=== PATIENT | female | born 1965 | race Caucasian/White ===

== ENCOUNTER 2017-12-20 10:46 | Outpatient (CLI) | payer OTHER, SELFPAY ==
[2017-12-20 13:16] LABS: ALT 22 U/L (12-78); AST 14 U/L (15-37); Albumin 3.4 g/dL (3.4-5.0); Alkaline Phosphatase 101 U/L (46-116); Anion Gap 7.6 mmol/L (3-11); BUN 14 mg/dL (7-18); Bilirubin, Total 0.5 mg/dL (0.2-1.0); CO2 28.4 mmol/L (21.0-32.0); CREATININE 0.86 mg/dL (0.55-1.02); Calcium 8.9 mg/dL (8.5-10.1); Chloride 105 mmol/L (98-107); Cholesterol 162 mg/dL (50-200); Glucose 125 mg/dL (70-100); HDL Cholesterol 72 mg/dL (40-60); LDL CHOLESTEROL 79 mg/dL (<100); Potassium 4.2 mmol/L (3.5-5.1); Sodium 141 mmol/L (136-145); Total Protein 6.3 g/dL (6.4-8.2); Triglyceride 58 mg/dL (30-150)
[2017-12-20 13:21] LABS: COMMENT (LAB VIEW ONLY) 94.21 mg/dL
[2017-12-20 15:26] LABS: Hemoglobin A1C 8.1 % (4.5-6.2)
[2017-12-21 09:50] LABS: Hepatitis C Ab w Rflx HCV PCR Negative (NEGAT)
== END 2017-12-20 11:06 ==
PROVIDERS: Internal Medicine Endocrinology, Diabetes & Metabolism; PCP Registered Nurse; Visit Provider Registered Nurse
DX: E10.9 Type 1 diabetes mellitus without complications (principal); Z11.59 Encounter for screening for other viral diseases; Z13.220 Encounter for screening for lipoid disorders; E10.65 Type 1 diabetes mellitus with hyperglycemia
CPT/HCPCS: 36415; 80053; 80061; 83721; 86803; 82043; 82570; 83036

== ENCOUNTER 2018-09-07 11:47 | Outpatient (CLI) | payer OTHER, SELFPAY ==
[2018-09-07 13:48] LABS: COMMENT (LAB VIEW ONLY) 177.12 mg/dL
[2018-09-07 14:13] LABS: ALT 27 U/L (12-78); AST 12 U/L (15-37); Albumin 3.5 g/dL (3.4-5.0); Alkaline Phosphatase 134 U/L (46-116); Anion Gap 11.2 mmol/L (3-11); BUN 16 mg/dL (7-18); Bilirubin, Total 0.5 mg/dL (0.2-1.0); CO2 25.8 mmol/L (21.0-32.0); Calcium 8.9 mg/dL (8.5-10.1); Calculated LDL 72 mg/dL; Chloride 103 mmol/L (98-107); Cholesterol 161 mg/dL (50-200); Glucose 173 mg/dL (70-100); HDL Cholesterol 74 mg/dL (40-60); Potassium 4.1 mmol/L (3.5-5.1); Sodium 140 mmol/L (136-145); Total Protein 6.7 g/dL (6.4-8.2); Triglyceride 75 mg/dL (30-150)
[2018-09-07 14:16] LABS: Hemoglobin A1C 7.7 % (4.5-6.2)
== END 2018-09-07 12:07 ==
PROVIDERS: PCP Family Medicine; Visit Provider Family Medicine
DX: E10.9 Type 1 diabetes mellitus without complications (principal)
CPT/HCPCS: 36415; 80053; 80061; 83721; 82043; 82570; 83036

== ENCOUNTER 2018-09-20 16:14 | Outpatient (REF) | payer OTHER, SELFPAY ==
--- NOTE | 2018-09-20 15:30 | PAPFT_PTH ---
PATIENT: Amy Villa LOC: [facility] U#:[id number] AGE/SX: 53/F ROOM: RE09/20/[address]: Esha Solis MD, DC : 1965 BED: DIS: 09/20/2018 SPEC #: [id number] RECD: 09/20/18 18:19 STATUS: SUMIT REQ #: [id number] ELIZABETH: 09/20/18 15:[address]: Esha Solis DEPT: [facility] Cytology RECD BY: Olimpia Bolton Tissues: 1 - CX/ENDOCX FOR PAP SMEARS Procedures: PAP THIN PREP/UVM Screening HPV DNA PROBE Comments: [id number]
== END 2018-09-20 16:34 ==
LOC: LBN 16:14
PROVIDERS: PCP Family Medicine; Visit Provider Family Medicine
DX: Z12.4 Encounter for screening for malignant neoplasm of cervix (principal); Z11.51 Encounter for screening for human papillomavirus (HPV)
CPT/HCPCS: 88142; 87624

== ENCOUNTER 2019-01-04 01:57 | Outpatient (CLI) | payer OTHER, SELFPAY ==
--- NOTE | 2019-01-04 11:29 | DI.MAMMO_ITS ---
EXAM: MAMMO SCREENING CLINICAL HISTORY: screening Z12.31 TECHNIQUE: Mammograms were interpreted according to the usual protocol including computer analysis w [employer] CAD system, tomosynthesis and C-view imaging. COMPARISON: April 2016 FINDINGS: The breasts are of moderate density with fairly symmetrical distribution of fibroglandular tissue. No dominant mass is identified in either breast. There is a group of microcalcifications, right breast , approximately the 6 o'clock position in the central portion of the breast visible on CC and MLO vie ws and not present on prior study of April 2016. These are not ideally visualized but may be acin ar in appearance. Additional magnification spot compression views are requested for further evaluatio n of these incompletely characterized microcalcifications. IMPRESSION: Additional mammographic views of the right breast requested as described above. Breast ultrasound may be indicated as well depending on the results of the additional mammographic views. Category 0, kami st density category B. BI-RADS Cat 0 - Assessment Incomplete: Need additional imaging evaluation Breast Density - Category B - Scattered areas of fibroglandular density Patient will receive a letter notifying them of these results.
[2019-01-04 11:45] LABS: Hemoglobin A1C 7.8 % (4.5-6.2)
[2019-01-04 12:32] LABS: TSH (W/Ref FT4) 5.55 uIU/mL (0.36-3.74)
[2019-01-04 12:49] LABS: FREE T4 0.71 ng/dL (0.76-1.46)
== END 2019-01-04 02:17 ==
PROVIDERS: PCP Family Medicine; Visit Provider Family Medicine
DX: Z12.31 Encounter for screening mammogram for malignant neoplasm of breast (principal); E10.9 Type 1 diabetes mellitus without complications; R79.89 Other specified abnormal findings of blood chemistry
CPT/HCPCS: 77063; 77067; 83036; 84439; 84443

== ENCOUNTER 2019-01-10 00:39 | Outpatient (CLI) | payer OTHER, SELFPAY ==
--- NOTE | 2019-01-10 14:33 | DI.MAMMO_ITS ---
EXAM: US BREAST RT LIMITED and spot magnification views of the right breast CLINICAL HISTORY: MICROCALCIFICATIONS RT BREAST, SPOT COMPRESSION REQUESTED TECHNIQUE: Ultrasound performed using standard protocol. Spot magnifications of the right breast w ere obtained. Additional images are interpreted according to the usual protocol including tomosynthe sis and 2D imaging. COMPARISON: Priors for comparison. FINDINGS: A small cluster of calcifications in the right breast appear unchanged. There are no definite suspic ious characteristics present at this time. No associated mass is seen. A right breast ultrasound was performed. The upper and lower outer quadrants of the right breast wer e evaluated sonographically. No suspicious cystic or solid masses are seen. IMPRESSION: 1. No suspicious evidence for malignancy at this time. 2. A 6 month follow-up right mammogram is requested for re-evaluation. BI-RADS Cat 3 - 6 month - Probably Benign Finding: Recommend follow-up mammography in 6 months Breast Density - Category B - Scattered areas of fibroglandular density The findings were discussed with the patient on the date of the examination.
== END 2019-01-10 00:59 ==
PROVIDERS: PCP Family Medicine; Visit Provider Family Medicine
DX: Z12.31 Encounter for screening mammogram for malignant neoplasm of breast (principal); R92.8 Other abnormal and inconclusive findings on diagnostic imaging of breast; R92.1 Mammographic calcification found on diagnostic imaging of breast
CPT/HCPCS: 76642; 77063; 77067

== ENCOUNTER 2019-02-01 10:19 | Outpatient (CLI) | payer OTHER, SELFPAY ==
[2019-02-01 10:56] LABS: TSH (W/Ref FT4) 3.06 uIU/mL (0.36-3.74)
== END 2019-02-01 10:39 ==
PROVIDERS: PCP Family Medicine; Visit Provider Family Medicine
DX: E03.9 Hypothyroidism, unspecified (principal)
CPT/HCPCS: 36415; 84443

== ENCOUNTER 2019-05-02 02:07 | Outpatient (CLI) | payer OTHER, SELFPAY ==
--- NOTE | 2019-05-02 09:45 | DI.US_ITS ---
EXAM: ABDOMEN ULTRASOUND CLINICAL HISTORY: RUQ TENDERNESS, NAUSEA, VOMITING, ABD PAIN, R10.9 TECHNIQUE: Ultrasound abdomen performed using standard protocol. COMPARISON: No exams were available for comparison FINDINGS: LIVER: Normal size and echogenicity. No focal liver lesions are seen.. GALLBLADDER: No evidence of cholelithiasis. No evidence of wall thickening. No pericholecystic fluid identified. KIDNEYS: Kidneys are symmetric in size. No evidence of renal calculi. No evidence of hydronephrosis. No renal mass or cyst identified. BILIARY SYSTEM: No intrahepatic or extrahepatic biliary ductal dilation. ALVAREZ'S SIGN: Negative. PANCREAS: Normal where visualized. SPLEEN: Not enlarged. ABDOMINAL AORTA AND IVC: Visualized portions normal caliber. ASCITES: None seen. IMPRESSION: Normal sonographic appearance of the upper abdomen. DATA REPOSITORY:
== END 2019-05-02 02:27 ==
PROVIDERS: PCP Family Medicine; Visit Provider Family Medicine
DX: R10.11 Right upper quadrant pain (principal); R11.2 Nausea with vomiting, unspecified
CPT/HCPCS: 76700

== ENCOUNTER 2019-09-21 01:47 | Outpatient (CLI) | payer OTHER, SELFPAY ==
[2019-09-21 13:07] LABS: Hemoglobin A1C 7.7 % (3.8-5.6)
[2019-09-21 13:20] LABS: TSH (W/Ref FT4) 2.28 uIU/mL (0.36-3.74)
== END 2019-09-21 02:07 ==
PROVIDERS: PCP Family Medicine; Visit Provider Family Medicine
DX: E03.9 Hypothyroidism, unspecified (principal); E11.9 Type 2 diabetes mellitus without complications
CPT/HCPCS: 36415; 83036; 84443

== ENCOUNTER 2019-12-29 03:03 | Outpatient (CLI) | payer OTHER, SELFPAY ==
--- NOTE | 2019-12-29 10:20 | DI.MAMMO_ITS ---
EXAM: MG MAMMO DIAGNOSTIC BI CLINICAL HISTORY: F/U ABNL MAMMO,R92.8 TECHNIQUE: Mammograms were interpreted according to the usual protocol including computer analysis w [employer] CAD system, tomosynthesis and C-view imaging. COMPARISON: FINDINGS: The breasts are of moderate density with fairly symmetrical distribution of fibroglandular tissue. N o dominant mass is identified in either breast. There are stable small areas of nodularity in the ri ght breast. There are multiple calcifications of the right breast, these appear unchanged or show ev idence of aggregation since the prior mammogram of December 2018, consistent with benign process. No new mass or suspicious clumped microcalcification is seen. No other change in appearance comparison with prior studies. IMPRESSION: No specific evidence of malignancy at this time. Probably benign calcifications of the right breast. Follow-up mammogram requested in 12 months. BI-RADS Category 2 - Benign Findings Breast Density - Category B - Scattered areas of fibroglandular density
== END 2019-12-29 03:23 ==
PROVIDERS: PCP Family Medicine; Visit Provider Family Medicine
DX: R92.8 Other abnormal and inconclusive findings on diagnostic imaging of breast (principal); R92.1 Mammographic calcification found on diagnostic imaging of breast
CPT/HCPCS: 77062; 77066; G0279

== ENCOUNTER 2020-02-08 05:07 | Outpatient (CLI) | payer OTHER, SELFPAY ==
[2020-02-08 10:11] LABS: Hemoglobin A1C 7.9 % (<5.7)
[2020-02-08 10:26] LABS: COMMENT (LAB VIEW ONLY) 90.85 mg/dL
[2020-02-08 10:35] LABS: ALT 25 U/L (14-59); AST 12 U/L (15-37); Albumin 3.4 g/dL (3.4-5.0); Alkaline Phosphatase 125 U/L (46-116); Anion Gap 9.4 mmol/L (3-11); BUN 17 mg/dL (7-18); Bilirubin, Total 0.6 mg/dL (0.2-1.0); CO2 25.6 mmol/L (21.0-32.0); CREATININE 0.94 mg/dL (0.55-1.02); Calcium 8.7 mg/dL (8.5-10.1); Calculated LDL 94 mg/dL (<100); Chloride 100 mmol/L (98-107); Cholesterol 182 mg/dL (<200); Glucose 355 mg/dL (74-106); HDL Cholesterol 73 mg/dL (40-60); Potassium 4.1 mmol/L (3.5-5.1); Sodium 135 mmol/L (136-145); Total Protein 6.7 g/dL (6.4-8.2); Triglyceride 79 mg/dL (<150)
== END 2020-02-08 05:27 ==
PROVIDERS: PCP Family Medicine; Visit Provider Family Medicine
DX: E11.9 Type 2 diabetes mellitus without complications (principal); K21.9 Gastro-esophageal reflux disease without esophagitis
CPT/HCPCS: 36415; 80053; 80061; 82043; 82570; 83036

== ENCOUNTER 2020-02-13 22:23 | Outpatient (REF) | payer OTHER, SELFPAY ==
[2020-02-13 21:39] LABS: Bilirubin Negative (Negative); Blood Negative (Negative); Clarity Sl Cloudy (Clear); Glucose 500 mg/dL (Negative); Ketones Negative (Negative); Leukocyte Esterase Negative (Negative); Nitrite Negative (Negative); Specific Gravity >= 1.030 (1.005-1.025); Urobilinogen 0.2 EU/dL (Up TO 0.2)
== END 2020-02-13 22:43 ==
LOC: LBN 22:23
PROVIDERS: PCP Family Medicine; Visit Provider Family Medicine
DX: R10.2 Pelvic and perineal pain (principal)
CPT/HCPCS: 81003

== ENCOUNTER 2020-03-05 08:56 | Outpatient (CLI) | payer OTHER, SELFPAY ==
[2020-03-06 19:28] LABS: COVID-19 RT-PCR UVMMC Result Negative (Negative)
== END 2020-03-05 09:16 ==
PROVIDERS: PCP Family Medicine; Visit Provider Family Medicine
DX: Z20.828 Contact with and (suspected) exposure to other viral communicable diseases (principal)
CPT/HCPCS: U0003

== ENCOUNTER 2020-03-15 04:19 | Outpatient (CLI) | payer OTHER, SELFPAY ==
--- NOTE | 2020-03-15 08:08 | DI.US_ITS ---
EXAM: US PELVIS TRANSVAGINAL CLINICAL HISTORY: suprapubic fullness,suprapubic abd pain,r10.2 TECHNIQUE: Ultrasound of the pelvis was performed both transabdominal and transvaginal. COMPARISON: US US ABDOMEN from 05/02/2019 . There are no prior pelvic ultrasounds. FINDINGS: UTERUS: Measures 7.9 cm length x 3.6 cm AP x 4.0 cm wide. There is a small 2 millimeter calcification in the deep anterior myometrium, just above the endometri um. Endometrial thickness measures 2-3 mm. There is no fluid in the endometrial canal. CERVIX: There are no obvious nabothian cysts. RIGHT OVARY: Measures 1.1 x 0.8 x 0.7 cm No significant cysts nor masses evident in the right ovary. LEFT OVARY: Measures 1.5 x 0.7 x 0.9 cm No significant cysts nor masses evident in the left ovary. CUL-DE-SAC: No free fluid evident. There images of both kidneys study appear unremarkable. IMPRESSION: 1. Small calcified anterior myometrial fibroid near the fundus 2. Nonthickened endometrium. No fluid in the endometrial canal. 3. No abnormal adnexal findings. No free fluid DATA REPOSITORY:
== END 2020-03-15 04:39 ==
PROVIDERS: PCP Family Medicine; Visit Provider Family Medicine
DX: D25.9 Leiomyoma of uterus, unspecified (principal); R10.2 Pelvic and perineal pain
CPT/HCPCS: 76830; 76856

== ENCOUNTER 2020-09-17 08:54 | Outpatient (CLI) | payer OTHER, SELFPAY ==
--- OUTSIDE RECORDS SUMMARY | 2020-09-17 08:59 | XMS_ITS ---
:1965 Author Care Team Providers Name Role Phone DR. HARRISON JAIMES Primary Care Provider [phone] DR. HARRISON JAIMES Referring Provider [phone] HARRISON JAIMES SUPERVISOR [employer]ESSING (DIRECT) Primary Care Provider [phone] Allergies Code Code System Name Reaction Severity Status Onset NKDA ? Medications Name Status Start Date Stop Date ? ? acyclovir 400 mg tablet Completed ? 04/20/19 19 Take 2 tablets twice a day by oral route as needed. aspirin 81 mg tablet,delayed release Active ? Not available Take 1 tablet every day by oral route. BD Ultra-Fine Sherlyn Pen Needle 32 gauge x /32 Active 1 Not available Use with Lantus pen (1 times) and Novolog Pen (3 - 4 times) famotidine 20 mg tablet Active ? Not avai lable Take 1 tablet every day by oral route. fluoxetine 40 mg capsule Active ? Not mita ilable Take 1 capsule every day by oral route. Humulin N NPH U-100 Insulin (isophane susp) 100 unit/mL subc utaneous Completed ? 12/09/2016 Inject 12 units every day by subcutaneous route as directed. Humulin R Regular U-100 Insulin 100 unit/mL injection solution C ompleted ? 12/09/2016 Take 3 times a day by injection route as directed. Ketone Urine Test strips Active ? Not mita ilable Test urine iif BG 350, or SICk and [place] Lantus Solostar U-100 Insulin 100 unit/mL (3 mL) subcutaneous pe n Active ? Not available INJECT 20 UNITS SUBCUTANEOUSLY ONCE DAILY AT BEDTIME AT 9PM melatonin 3 mg tablet Active ? Not availa ble Take 3 mg every day by oral route at bedtime. metformin 1,000 mg tablet Completed ? 2018 Take 1 tablet twice a day by oral route. Multi Vitamin Completed ? 09/21/2017 Novolog Flexpen U-100 Insulin aspart 100 unit/mL (3 mL) subcutan eous Active ? Not available INJECT AT MEALS USING SLIDING SCALE.(GR AMS OF CARBS/10)+(BLOOD GLUCOSE-140)/25 AT BEDTIME OR WHEN NOT EATING(BLOOD GLUCOSE-190)/25. OneTouch UltraSoft Lancets Active ? Not a vailable Test 4 or 5 times daily or as directed. Dx E10.65 Medically nec essary. OneTouch Verio IQ Meter kit Completed ? 11/30 Test 4 to 5 times daily or as directed. Dx E11.65 Medically nec essary. OneTouch Verio test strips Completed ? 12/22 Test 4-5 times daily or as directed. Dx E11.65 Medically necess cem. ReliOn All-In-One Meter Active ? Not avai lable ReliOn Prime Test Strips Active ? Not mita ilable simvastatin 40 mg tablet Active ? Not mita ilable Take 1 tablet every day by oral route. Problems Name Status Onset Date Source ? Type 1 Diabetes Mellitus Active 09/11/2016 ? Shoulder Pain Active 09/11/2016 ? 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 ? Colonoscopy Information not avai lable Notes: 1991, 2006, rectal bleeding ? Colposcopy Information not avai lable Results Lab Results Date Name Specimen Result Interpretation Description Value Range Status Address ? 04/20/2018 Glucose, Blood ? Blood 286 ? ? [facility] - Fingerstick, capillary Glucose: mg/dl Specialty: Blood [address] [facility] 12/22/2017 Glucose, Blood ? Blood 309 ? ? Rhc - Fingerstick, capillary Glucose: mg/dl Specialty: Blood [address] [place] [address] 12/20/2017 HbA1C ? No observation ? ? ? [facility] (Hemoglobin recorded. Ve ont a1C), [facility] 09/21[facility]2017 Glucose, Blood ? Blood 178 ? ? Rhc - Fingerstick, capillary Glucose: mg/dl Specialty: Blood 103 [facility] 09/18/2017 HbA1C High Hba1C 7.9 % 4. Final [place] (Hemoglobin 5- Hospkolby au a1C), Blood 6. (Lab) : 90 2 [facility] [place] ? ? High Mean Glucose 180 54 Final [place] mg/dL -1 Hospital 15 (Lab): [address], [facility] 06/09/2017 Glucose, Blood ? Blood 316 ? ? Rhc - Fingerstick, capillary Glucose: mg/dl Specialty: Blood 103 [facility] 06/01/2017 HbA1C High Hba1C 7.2 % 4. Final [place] (Hemoglobin 5- Hospi angely a1C), Blood 6. (Lab) : [address], [place] ? ? High Mean Glucose 160 54 Final [place] mg/dL -1 Hospital 15 (Lab): 90 [address], [facility] 03/10/2017 Glucose, Blood ? Blood 377 ? ? Rhc - Fingerstick, capillary Glucose: mg/dl Specialty: Blood 103 [facility] 03/05/2017 HbA1C High Hemoglobin 8.1 % 4. Final * DO Not Use* (Hemoglobin a1C 5- Ch La b: 90 a1C), Blood 6. [address], % [place] ? ? High Meangluc 186 54 Final *DO Not Use* mg/dL -1 Ch Lab: [address], /d [place] L 11/02/2016 HbA1C High Hemoglobin 8.4 % 4. Final * DO Not Use* (Hemoglobin a1C 5- Ch La b: 90 a1C), Blood 6. [address], % [place] ? ? High Meangluc 194 54 Final *DO Not Use* mg/dL -1 Ch Lab: [address], /d [place] L 11/02/2016 BMP, Serum or High Glucose 235 74 Angelita l *DO Not Use* Plasma mg/dL -1 Ch Lab: [address], /d [place] L ? ? ? Urea Nitrogen 15 7- Final *D O Not Use* mg/dL 18 Ch Lab: [address], L [place] ? ? ? Creatinine 0.8 0. Final *DO N ot Use* mg/dL 55 Ch Lab: 90 -[address], 2 [place] mg /d L ? ? ? Sodium 139.7 13 Final *DO Not U se* mmol/ 6- Ch Lab: 90 [address], mm [place] ol /L ? ? ? Potassium 4.4 3. Final *DO No t Use* mmol/ 5- Ch Lab: [address], mm [place] ol /L ? ? ? Chloride 104 98 Final *DO Not Use* mmol/ -1 Ch Lab: [address], ol [place] /l ? ? ? Carbon 29 21 Final *DO Not U se* Dioxide mmol/ -3 Ch Lab: 9 [address], ol [place] /l ? ? ? Calcium 8.7 8. Final *DO Not Use* mg/dL 5- Ch Lab: [address], mg [place] /d L ? ? ? Anion Gap 12 ? Final *DO No t Use* Ch Lab: 90 [facility] ? ? High BUN/crea 20.1 12 Final *DO Not Use* -2 Ch Lab: 90 0 [facility] ? ? ? Glomerular >60 ? Final *DO N ot Use* Filtration mL/mi Ch Lab : 90 Rate n/1.[address] [facility] 11/02/2016 Microalbumin/c ? Urine 107.0 ? Final *DO Not Use* reatinine, Creatinine, mg/dL C h Lab: 90 Ratio Panel, Random Swif twater Urine [facility] ? ? ? Urine 5.6 0- Final *DO Not Us e* Microalbumin mg/L 20 Ch L ab: 90 mg [place] /L [facility] ? ? ? Mircoalbumin/ 5.2 ? Final *D O Not Use* creatinine mg/g Ch Lab : 90 [facility] 11/02/2016 C-peptide, ? C-peptide, 0.2 ? Angelita l *DO Not Use* Serum Serum Ch Lab: 90 [facility] 11/02/2016 Manuel-65 Ab, ? Gad65 Ab 0.33 ? Final *DO Not Use* Serum Assay Ch Lab: 90 [facility] ? Glucose, Blood ? Blood 341 ? ? Rhc - Fingerstick, capillary Glucose: mg/dl Specialty: Blood 103 [facility] ? Glucose, Blood ? Blood 179 ? ? Rhc - Fingerstick, capillary Glucose: mg/dl Specialty: Blood 103 [facility] Past Encounters None recorded. Social History Tobacco Smoking Status Former Smoker Notes: 019 Vaccine List Vaccine Type pneumococcal polysaccharide PPV23 03/01/2001 Td (adult) 06/01/2011 Tdap 06/01/2011 Plan of Care Reminders Provider Appointments None ? ? recorded. Lab None ? ? recorded. Referral None ? ? recorded. Procedures None ? ? recorded. Surgeries None ? ? recorded. Imaging None ? ? recorded. Vitals 04/20/2018 01:00PM ENDOCRINOLOGY FOLLOW UP 30 Height Weight BMI Blood Pressure 175.26 cm 98.88 kg 32.2 kg/m2 100/62 mm[Hg] 12/22/2017 01:00PM ENDOCRINOLOGY FOLLOW UP 30 Height Weight BMI Blood Pressure 175.26 cm 98.88 kg 32.2 kg/m2 100/60 mm[Hg] 09/21/2017 03:00PM ENDOCRINOLOGY FOLLOW UP 30 Height Weight BMI Blood Pressure 175.26 cm 92.53 kg 30.1 kg/m2 102/54 mm[Hg] 06/09/2017 01:00PM ENDOCRINOLOGY FOLLOW UP 30 Height Weight BMI Blood Pressure 175.26 cm 94.35 kg 30.7 kg/m2 100/60 mm[Hg] 03/10/2017 01:00PM ENDOCRINOLOGY FOLLOW UP 30 Height Weight BMI Blood Pressure 175.26 cm 93.89 kg 30.6 kg/m2 110/70 mm[Hg] 12/09/2016 02:30PM ENDOCRINOLOGY FOLLOW UP 30 Height Weight BMI Blood Pressure 175.26 cm 94.35 kg 30.7 kg/m2 130/80 mm[Hg] 10/20/2016 01:30PM ENDOCRINOLOGY NEW PATIENT 60 Height Weight BMI Blood Pressure 175.26 cm 97.07 kg 31.6 kg/m2 102/70 mm[Hg]
[2020-09-17 10:20] LABS: ALT 31 U/L (14-59); AST 27 U/L (15-37); Albumin 3.4 g/dL (3.4-5.0); Alkaline Phosphatase 127 U/L (46-116); Anion Gap 8.4 mmol/L (3-11); BUN 13 mg/dL (7-18); Bilirubin, Total 0.5 mg/dL (0.2-1.0); CO2 27.6 mmol/L (21.0-32.0); CREATININE 0.9 mg/dL (0.55-1.02); Calcium 8.8 mg/dL (8.5-10.1); Chloride 107 mmol/L (98-107); Glucose 187 mg/dL (74-106); Potassium 4.1 mmol/L (3.5-5.1); Sodium 143 mmol/L (136-145); Total Protein 6.5 g/dL (6.4-8.2)
== END 2020-09-17 08:55 | disposition home or self-care (01) ==
LOC: LBO 08:56
PROVIDERS: PCP Family Medicine; Visit Provider Family Medicine
DX: E10.9 Type 1 diabetes mellitus without complications (principal)
CPT/HCPCS: 36415; 80053

== ENCOUNTER 2021-01-09 17:56 | Outpatient (REF) | payer OTHER, SELFPAY ==
[2021-01-10 16:03] LABS: COVID-19 RT-PCR UVMMC Result Negative (Negative)
== END 2021-01-09 17:57 | disposition home or self-care (01) ==
LOC: NCHCN 17:56
PROVIDERS: PCP Family Medicine; Visit Provider Physician Assistant Medical
DX: Z20.822 Contact with and (suspected) exposure to COVID-19 (principal); J06.9 Acute upper respiratory infection, unspecified
CPT/HCPCS: U0003

== ENCOUNTER 2021-02-06 14:05 | Outpatient (REF) | payer OTHER, SELFPAY ==
[2021-02-08 18:26] LABS: COVID-19 RT-PCR UVMMC Result Negative (Negative)
== END 2021-02-06 14:06 | disposition home or self-care (01) ==
LOC: LBN 14:05
PROVIDERS: PCP Family Medicine; Visit Provider Family Medicine
DX: E10.9 Type 1 diabetes mellitus without complications (principal); F98.8 Other specified behavioral and emotional disorders with onset usually occurring in childhood and adolescence; Z20.822 Contact with and (suspected) exposure to COVID-19
CPT/HCPCS: U0003

== ENCOUNTER 2021-05-12 16:02 | Outpatient (REF) | payer OTHER, SELFPAY ==
[2021-05-12 20:23] LABS: COMMENT (LAB VIEW ONLY) 200.82 mg/dL; Microalb ug/mg Crea 3.8 ug/mg Cr
== END 2021-05-12 16:03 | disposition home or self-care (01) ==
LOC: LBN 16:02
PROVIDERS: PCP Family Medicine; Visit Provider Family Medicine
DX: E10.9 Type 1 diabetes mellitus without complications (principal); F98.8 Other specified behavioral and emotional disorders with onset usually occurring in childhood and adolescence
CPT/HCPCS: 82043; 82570

== ENCOUNTER 2021-05-26 01:09 | Outpatient (CLI) | payer OTHER, SELFPAY ==
--- NOTE | 2021-05-26 08:15 | DI.MAMMO_ITS ---
Exam(s) MAMMO SCREENING EXAM: MAMMO SCREENING CLINICAL HISTORY: screening,z12.39 TECHNIQUE: Mammograms were interpreted according to the usual protocol including computer analysis w [employer] CAD system, tomosynthesis and C-view imaging. COMPARISON: 2013 through 2019 FINDINGS: The breasts are composed of scattered fibroglandular densities, Breast Density category B. No suspicious masses or suspicious microcalcifications are seen. Benign calcifications are again not ed in the right breast. No skin thickening or abnormal axillary lymph nodes are seen. There has been no significant change from prior exams. IMPRESSION: BI-RADS Cat 2 - Benign Findings Yearly screening mammography is recommended. Breast Density - Category B, scattered fibroglandular densities. A negative radiographic report should not delay biopsy if a dominant or clinically suspicious mass is present. Up to ten percent of cancers are not identified on mammography. A negative report may reinforce clinical impression. Adenosis and dense breasts may obscure an underlying neoplasm. False positive reports average 6 to 10%. Patient will receive a letter notifying them of these results.
== END 2021-05-26 01:29 ==
PROVIDERS: PCP Family Medicine; Visit Provider Family Medicine
DX: Z12.31 Encounter for screening mammogram for malignant neoplasm of breast (principal)
CPT/HCPCS: 77063; 77067

== ENCOUNTER 2021-10-01 09:13 | Outpatient (CLI) | payer MEDICAID, SELFPAY ==
[2021-10-01 17:01] LABS: ALT 30 U/L (14-59); AST 18 U/L (15-37); Albumin 3.5 g/dL (3.4-5.0); Alkaline Phosphatase 109 U/L (46-116); Anion Gap 6.3 mmol/L (3-11); BUN 20 mg/dL (7-18); Bilirubin, Total 0.6 mg/dL (0.2-1.0); CO2 27.7 mmol/L (21.0-32.0); CREATININE 0.8 mg/dL (0.55-1.02); Calcium 8.8 mg/dL (8.5-10.1); Chloride 101 mmol/L (98-107); Glucose 223 mg/dL (74-106); Potassium 3.6 mmol/L (3.5-5.1); Sodium 135 mmol/L (136-145); Total Protein 6.9 g/dL (6.4-8.2)
== END 2021-10-01 09:14 | disposition home or self-care (01) ==
PROVIDERS: PCP Family Medicine; Visit Provider Family Medicine
DX: E10.9 Type 1 diabetes mellitus without complications (principal)
CPT/HCPCS: 36415; 80053

== ENCOUNTER 2022-02-12 15:56 | Outpatient (REF) | payer MEDICAID, SELFPAY ==
--- NOTE | 2022-02-12 13:45 | PAPFT_PTH ---
PATIENT: Amy Villa LOC: [facility] U#:[id number] AGE/SX: 57/F ROOM: RE02/12/[address]: Esha Solis MD, DC : 1965 BED: DIS: 02/12/2022 SPEC #: [id number] RECD: 02/13/22 12:51 STATUS: SUMIT REQ #: [id number] ELIZABETH: 02/12/22 13:[address]: Esha Solis DEPT: [facility] Cytology RECD BY: Olimpia Bolton Tissues: 1 - CX/ENDOCX FOR PAP SMEARS Procedures: PAP THIN PREP/UVM Screening HPV DNA PROBE Comments: [id number] (CHLAMYDIA/GC)
[2022-02-16 13:38] LABS: Chlamydia Result Negative (Negative); GC Result Negative (Negative)
== END 2022-02-12 15:57 | disposition home or self-care (01) ==
LOC: LBN 15:56
PROVIDERS: PCP Family Medicine; Visit Provider Family Medicine
DX: Z11.3 Encounter for screening for infections with a predominantly sexual mode of transmission (principal); Z12.4 Encounter for screening for malignant neoplasm of cervix; Z11.51 Encounter for screening for human papillomavirus (HPV)
CPT/HCPCS: 87491; 87591; 88142; 87624

== ENCOUNTER 2022-04-06 08:51 | Outpatient (CLI) | payer MEDICAID, SELFPAY ==
[2022-04-06 12:34] LABS: HCT 41.6 % (36.0-46.0); HGB 13.4 g/dL (11.2-15.7); MCH 30.8 pg (27.0-33.0); MCHC 32.2 % (32.0-36.0); MCV 96 fL (80-95); MPV 10.7 fL (8.0-11.0); Platelet Count 222 10^3/uL (130-400); RBC 4.35 10^6/uL (3.93-5.22); RDW 12.5 % (11.7-14.6); RDW-SD 44.6 fL; WBC 4.85 10^3/uL (4.4-10.8)
[2022-04-06 12:43] LABS: COMMENT (LAB VIEW ONLY) 155.88 mg/dL; Microalb ug/mg Crea 5.4 ug/mg Cr
[2022-04-06 12:55] LABS: ALT 58 U/L (14-59); AST 45 U/L (15-37); Albumin 3.4 g/dL (3.4-5.0); Alkaline Phosphatase 146 U/L (46-116); Anion Gap 9.4 mmol/L (3-11); BUN 15 mg/dL (7-18); Bilirubin, Total 0.4 mg/dL (0.2-1.0); CO2 25.6 mmol/L (21.0-32.0); CREATININE 0.9 mg/dL (0.55-1.02); Calculated LDL 68 mg/dL (<100); Chloride 107 mmol/L (98-107); Cholesterol 154 mg/dL (<200); Estimated GFR 74.57 (mL/min/1.73m2); Glucose 181 mg/dL (74-106); HDL Cholesterol 70 mg/dL (40-60); Sodium 142 mmol/L (136-145); TSH (W/Ref FT4) 3.99 uIU/mL (0.36-3.74); Total Protein 6.7 g/dL (6.4-8.2); Triglyceride 81 mg/dL (<150)
[2022-04-06 12:57] LABS: Hemoglobin A1C 7.3 % (<5.7)
[2022-04-06 13:12] LABS: FREE T4 0.74 ng/dL (0.76-1.46)
== END 2022-04-06 08:52 | disposition home or self-care (01) ==
LOC: LOS 08:51
PROVIDERS: PCP Family Medicine; Referring Provider Family Medicine; Visit Provider Family Medicine
DX: E11.9 Type 2 diabetes mellitus without complications (principal); R10.9 Unspecified abdominal pain; E10.9 Type 1 diabetes mellitus without complications; E03.9 Hypothyroidism, unspecified
CPT/HCPCS: 36415; 80053; 80061; 85027; 82043; 82570; 83036; 84439; 84443

== ENCOUNTER 2022-04-07 09:20 | Outpatient (CLI) | payer MEDICAID, SELFPAY ==
--- NOTE | 2022-04-07 08:30 | DI.RAD_ITS ---
Exam(s) XR RIBS LT W PA LAT CHEST EXAM: XR RIBS LT W PA LAT CHEST CLINICAL HISTORY: l rib pain, pleurodynia,r07.81. TECHNIQUE: 2D digital imaging was performed. COMPARISON: No exams were available for comparison FINDINGS: Total 6 views: Left rib cage-four views: There are no obvious left rib fractures identified. No rib lesions. Chest-two views: Heart size normal. Mediastinum not widened. Lungs are clear. No infiltrates nor p leural effusions. No pneumothorax IMPRESSION: No acute pulmonary findings. No pneumothorax. No obvious left rib fractures. DATA REPOSITORY: RADIATION DOSE DELIVERED:
== END 2022-04-07 09:40 ==
LOC: DI 09:20
PROVIDERS: PCP Family Medicine; Visit Provider Family Medicine
DX: R07.81 Pleurodynia (principal)
CPT/HCPCS: 71046; 71100

== ENCOUNTER 2022-04-21 01:09 | Outpatient (CLI) | payer MEDICAID, SELFPAY ==
--- NOTE | 2022-04-21 06:45 | DI.US_ITS ---
Exam(s) US ABDOMEN EXAM: US ABDOMEN CLINICAL HISTORY: LUQ ABD PAIN, R10.9 TECHNIQUE: Ultrasound abdomen performed using standard protocol. COMPARISON: US US ABDOMEN from 05/02/2019 FINDINGS: ABDOMINAL AORTA AND IVC: Visualized portions normal caliber. PANCREAS: Normal where visualized. LIVER: Normal. Hepatopedal flow in the Portal Vein. The liver measures 17.4 cm long. GALLBLADDER:No evidence of cholelithiasis. No evidence of wall thickening. No pericholecystic fluid i dentified. BILIARY SYSTEM: Common bile duct measures < 7 mm. No intrahepatic biliary ductal dilation. ALVAREZ'S SIGN: Negative. KIDNEYS: Kidneys are symmetric in size. No evidence of renal calculi. No evidence of hydronephrosis. No renal mass or cyst identified. SPLEEN: Not enlarged. ASCITES: None seen. IMPRESSION: Normal sonographic appearance of the upper abdomen. DATA REPOSITORY:
== END 2022-04-21 01:29 ==
LOC: DI 01:09
PROVIDERS: PCP Family Medicine; Visit Provider Family Medicine
DX: R10.9 Unspecified abdominal pain (principal)
CPT/HCPCS: 76700

== ENCOUNTER 2022-07-16 03:13 | Outpatient (CLI) | payer MEDICAID, SELFPAY ==
[2022-07-16 14:58] LABS: Hemoglobin A1C 7.3 % (<5.7)
[2022-07-16 15:14] LABS: TSH (W/Ref FT4) 2.42 uIU/mL (0.36-3.74)
== END 2022-07-16 03:14 | disposition home or self-care (01) ==
PROVIDERS: PCP Family Medicine; Visit Provider Family Medicine
DX: E10.9 Type 1 diabetes mellitus without complications (principal); E03.9 Hypothyroidism, unspecified
CPT/HCPCS: 36415; 83036; 84443

== ENCOUNTER 2023-03-05 02:53 | Outpatient (CLI) | payer MEDICAID, SELFPAY ==
[2023-03-05 15:05] LABS: HCT 40.6 % (36.0-46.0); HGB 13.7 g/dL (11.2-15.7); MCH 31.9 pg (27.0-33.0); MCHC 33.7 % (32.0-36.0); MCV 95 fL (80-95); MPV 10.9 fL (8.0-11.0); Platelet Count 224 10^3/uL (130-400); RBC 4.29 10^6/uL (3.93-5.22); RDW 12.9 % (11.7-14.6); RDW-SD 44.3 fL; WBC 6.56 10^3/uL (4.4-10.8)
[2023-03-05 15:36] LABS: Hemoglobin A1C 7.7 % (<5.7)
[2023-03-05 16:19] LABS: Iron 113 ug/dL (50-170)
[2023-03-05 16:32] LABS: ALT 50 U/L (14-59); AST 50 U/L (15-37); Albumin 3.5 g/dL (3.4-5.0); Alkaline Phosphatase 126 U/L (46-116); Anion Gap 6.4 mmol/L (3-11); BUN 18 mg/dL (7-18); Bilirubin, Total 0.6 mg/dL (0.2-1.0); CO2 26.6 mmol/L (21.0-32.0); CREATININE 0.9 mg/dL (0.55-1.02); Calcium 8.8 mg/dL (8.5-10.1); Calculated LDL 59 mg/dL (<100); Chloride 104 mmol/L (98-107); Cholesterol 164 mg/dL (<200); Ferritin 100 ng/mL (8-252); Glucose 127 mg/dL (74-106); HDL Cholesterol 80 mg/dL (40-60); Sodium 137 mmol/L (136-145); TSH (W/Ref FT4) 3.54 uIU/mL (0.36-3.74); Total Protein 6.9 g/dL (6.4-8.2); Triglyceride 129 mg/dL (<150)
== END 2023-03-05 02:54 | disposition home or self-care (01) ==
LOC: LBO 02:53
PROVIDERS: PCP Family Medicine; Visit Provider Family Medicine
DX: I10 Essential (primary) hypertension (principal); R53.83 Other fatigue; E11.9 Type 2 diabetes mellitus without complications; E03.9 Hypothyroidism, unspecified
CPT/HCPCS: 36415; 80053; 80061; 85027; 82728; 83036; 83540; 84443

== ENCOUNTER 2023-03-09 15:45 | Outpatient (REF) | payer MEDICAID, SELFPAY ==
[2023-03-09 21:46] LABS: COMMENT (LAB VIEW ONLY) 91.34 mg/dL; Microalb ug/mg Crea 4.1 ug/mg Cr
== END 2023-03-09 15:46 | disposition home or self-care (01) ==
LOC: LBN 15:45
PROVIDERS: PCP Family Medicine; Visit Provider Family Medicine
DX: E11.9 Type 2 diabetes mellitus without complications (principal)
CPT/HCPCS: 82043; 82570

== ENCOUNTER 2023-05-02 17:11 | Emergency (ER) | payer MEDICAID, SELFPAY ==
[2023-05-02 17:15] VITALS: BP 148/67; PULSE 84; RESP 18; TEMP 36.6; O2SAT 98
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
== END 2023-05-02 18:00 | disposition home or self-care (01) ==
PROVIDERS: Emergency Provider Nurse Practitioner Acute Care; PCP Family Medicine
DX: R22.33 Localized swelling, mass and lump, upper limb, bilateral (principal); M79.89 Other specified soft tissue disorders; E10.9 Type 1 diabetes mellitus without complications
CPT/HCPCS: 99281; 99282

== ENCOUNTER → 2023-06-23 02:19 | Outpatient (CLI) | payer MEDICAID, SELFPAY ==
--- NOTE | 2023-06-23 07:45 | DI.MAMMO_ITS ---
Exam(s) MAMMO SCREENING EXAM: MAMMO SCREENING CLINICAL HISTORY: screening,z12.39. TECHNIQUE: Bilateral full field digital CC and MLO mammographic images were obtained with 3D tomosyn thesis and utilizing computer aided detection (CAD). COMPARISON: Prior mammograms were reviewed. FINDINGS: There has been no significant change in the appearance and distribution of the fibroglandular tissue. A small new group of microcalcifications noted in the central left breast on the CC image, approximat rob 4 cm in from the nipple. This presently has benign appearance. Other benign-appearing micro and macro calcifications in the breasts appear unchanged. There are no new spiculated masses There is no significant architectural distortion nor skin thickening-retraction. IMPRESSION: Benign findings. No radiographic evidence of malignancy. BI-RADS Category 2 - Benign Findings Breast Density - Category B - Scattered areas of fibroglandular density Breast density Category C or D implies that the patient has dense breast tissue. Dense breast tissue can make it harder to find cancer on a mammogram. Dense breast tissue is also associated with an incr eased risk of breast cancer. This information about the result of the mammogram report was provided to the patient to raise their awareness. Use this report when you speak with the patient about their risks for breast cancer, which includes their family history. At that time, you may recommend additional screening tests (Ultrasoun d or MRI) as these tests may add significant information. A negative radiographic report should not delay biopsy if a dominant or clinically suspicious mass is present. Up to ten percent of cancers are not identified on mammography. A negative report may reinforce clinical impression. Adenosis and dense breasts may obscure an underlying neoplasm. False positive reports average 6 to 10%. Patient will receive a letter notifying them of these results.
== END ==
PROVIDERS: PCP Family Medicine; Visit Provider Family Medicine
DX: Z12.31 Encounter for screening mammogram for malignant neoplasm of breast (principal)
CPT/HCPCS: 77063; 77067

== ENCOUNTER → 2023-06-24 02:59 | Outpatient (CLI) | payer MEDICAID, SELFPAY ==
--- NOTE | 2023-06-24 07:30 | DI.DEXA_ITS ---
Exam(s) XR DEXA BONE DENSITY W/WO CALVIN EXAM: XR DEXA BONE DENSITY W/WO CALVIN CLINICAL HISTORY: SCREENING FOR OSTEOPOROSIS IN POSTMENOPAUSAL WOMAN,Z78.0 TECHNIQUE: COMPARISON: No exams were available for comparison FINDINGS: Lateral Spine Image: There is a question of mild compression of the L2 vertebral body on the lateral scanogram. Left hip: Total T-Score: -1.6 Total Z-Score: -0.7 T- and Z-scores: Findings are consistent with osteopenia. Lumbar Spine: Total T-Score: -2.4 Total Z-Score: -1.1 T- and Z-scores: Overall, findings are consistent with osteopenia. There is osteoporosis in the L3 a nd L4 vertebral bodies with T-scores of -2.5 and -2.7, respectively. IMPRESSION: Osteoporosis in the L3 and L4 vertebral bodies.
== END ==
PROVIDERS: PCP Family Medicine; Visit Provider Family Medicine
DX: Z78.0 Asymptomatic menopausal state (principal); M81.0 Age-related osteoporosis without current pathological fracture; Z13.820 Encounter for screening for osteoporosis
CPT/HCPCS: 77080

== ENCOUNTER 2023-11-01 18:24 | Outpatient (REF) | payer MEDICAID, SELFPAY ==
[2023-11-03 11:42] LABS: Chlamydia Result Negative (Negative); GC Result Negative (Negative)
== END 2023-11-01 18:25 | disposition home or self-care (01) ==
LOC: LBN 18:24
PROVIDERS: PCP Family Medicine; Visit Provider Nurse Practitioner Family
DX: B37.31 Acute candidiasis of vulva and vagina (principal); Z11.3 Encounter for screening for infections with a predominantly sexual mode of transmission
CPT/HCPCS: 87491; 87591; 87480; 87510; 87660

== ENCOUNTER 2024-03-23 04:07 | Outpatient (CLI) | payer MEDICAID, SELFPAY ==
[2024-03-23 11:42] LABS: Hemoglobin A1C 8.3 % (<5.7)
[2024-03-23 11:47] LABS: ALT 66 U/L (14-59); AST 63 U/L (15-37); Albumin 3.2 g/dL (3.4-5.0); Alkaline Phosphatase 172 U/L (46-116); Anion Gap 6.6 mmol/L (3-11); BUN 20 mg/dL (7-18); Bilirubin, Total 0.37 mg/dL (0.2-1.0); CO2 27.4 mmol/L (21.0-32.0); Calcium 8.8 mg/dL (8.5-10.1); Calculated LDL 114 mg/dL (<100); Chloride 109 mmol/L (98-107); Cholesterol 211 mg/dL (<200); Glucose 152 mg/dL (74-106); HDL Cholesterol 76 mg/dL (40-60); Potassium 4.2 mmol/L (3.5-5.1); Sodium 143 mmol/L (136-145); TSH (W/Ref FT4) 10.67 uIU/mL (0.36-3.74); Triglyceride 108 mg/dL (<150)
[2024-03-23 12:03] LABS: FREE T4 0.55 ng/dL (0.76-1.46)
== END 2024-03-23 04:08 | disposition home or self-care (01) ==
PROVIDERS: PCP Family Medicine; Visit Provider Family Medicine
DX: E03.9 Hypothyroidism, unspecified (principal); I10 Essential (primary) hypertension; E11.9 Type 2 diabetes mellitus without complications; R79.89 Other specified abnormal findings of blood chemistry
CPT/HCPCS: 36415; 80053; 80061; 83036; 84439; 84443

== ENCOUNTER 2024-04-03 15:46 | Outpatient (REF) | payer MEDICAID, SELFPAY ==
[2024-04-03 16:22] LABS: *AMPHETAMINES SCREEN URINE Positive (Negative); *BARBITURATES SCREEN URINE Negative (Negative); *BENZODIAZEPINES SCREEN URINE Negative (Negative); Cannabinoids THC Negative (Negative); Cocaine Screen,Urine Negative (Negative); METHADONE URINE SCREEN Negative (Negative); OPIATES URINE SCREEN Negative (Negative)
[2024-04-03 16:24] LABS: Tricyclic Antidepressants Negative (Negative)
[2024-04-03 16:32] LABS: COMMENT (LAB VIEW ONLY) 26.79 mg/dL; Microalb ug/mg Crea 9.7 ug/mg Cr
== END 2024-04-03 15:47 | disposition home or self-care (01) ==
LOC: LBN 15:46
PROVIDERS: PCP Family Medicine; Visit Provider Family Medicine
DX: E66.9 Obesity, unspecified (principal); Z79.891 Long term (current) use of opiate analgesic; F98.8 Other specified behavioral and emotional disorders with onset usually occurring in childhood and adolescence
CPT/HCPCS: 80307; 82043; 82570

== ENCOUNTER 2024-04-27 03:02 | Outpatient (CLI) | payer MEDICAID, SELFPAY ==
[2024-04-27 11:51] LABS: ALT 398 U/L (14-59); AST 312 U/L (15-37); Albumin 3.1 g/dL (3.4-5.0); Alkaline Phosphatase 305 U/L (46-116); Anion Gap 5.2 mmol/L (3-11); BUN 18 mg/dL (7-18); Bilirubin, Total 0.64 mg/dL (0.2-1.0); CO2 27.8 mmol/L (21.0-32.0); CREATININE 0.9 mg/dL (0.55-1.02); Chloride 107 mmol/L (98-107); Estimated GFR 73.64 (mL/min/1.73m2); Glucose 167 mg/dL (74-106); Potassium 4.5 mmol/L (3.5-5.1); Sodium 140 mmol/L (136-145); TSH (W/Ref FT4) 2.04 uIU/mL (0.36-3.74); Total Protein 7.4 g/dL (6.4-8.2)
[2024-04-28 12:27] LABS: Hepatitis A Antibody IgM Negative (Negative); Hepatitis B Core Antibody Negative (Negative); Hepatitis B surface Ag Negative (Negative); Hepatitis C Ab w Rflx HCV PCR Negative (Negative)
== END 2024-04-27 03:03 | disposition home or self-care (01) ==
PROVIDERS: PCP Family Medicine; Visit Provider Family Medicine
DX: I10 Essential (primary) hypertension (principal); R79.89 Other specified abnormal findings of blood chemistry; E03.9 Hypothyroidism, unspecified
CPT/HCPCS: 36415; 80053; 86704; 86709; 86803; 87340; 84443

== ENCOUNTER 2024-04-28 09:40 | Outpatient (CLI) | payer MEDICAID, SELFPAY ==
--- NOTE | 2024-04-28 09:30 | DI.US_ITS ---
Exam(s) US ABDOMEN EXAM: US ABDOMEN CLINICAL HISTORY: elevated LFTs, rising, R79.89; abd pain, R10.9 TECHNIQUE: Ultrasound abdomen performed using standard protocol. COMPARISON: US US ABDOMEN from 05/02/2019 US US ABDOMEN from 04/21/2022 FINDINGS: LIVER: Normal size and echogenicity. No focal liver lesions are seen. GALLBLADDER: No evidence of cholelithiasis. No evidence of wall thickening. No pericholecystic fluid identified. ALVAREZ'S SIGN: Negative. BILIARY SYSTEM: No intrahepatic or extrahepatic biliary ductal dilation. KIDNEYS: Kidneys are symmetric in size. No evidence of renal calculi. No evidence of hydronephrosis. No renal mass or cyst identified. PANCREAS: Normal where visualized. SPLEEN: Not enlarged. ABDOMINAL AORTA AND IVC: Visualized portions normal caliber. ASCITES: None seen. IMPRESSION: Normal sonographic appearance of the upper abdomen. DATA REPOSITORY:
== END 2024-04-28 10:00 ==
LOC: DI 09:40
PROVIDERS: PCP Family Medicine; Visit Provider Family Medicine
DX: R79.89 Other specified abnormal findings of blood chemistry (principal); R10.9 Unspecified abdominal pain
CPT/HCPCS: 76700

== ENCOUNTER 2024-04-28 16:19 | Outpatient (CLI) | payer MEDICAID, SELFPAY ==
[2024-04-28 12:23] LABS: ALT 425 U/L (14-59); AST 327 U/L (15-37); Albumin 3.2 g/dL (3.4-5.0); Alkaline Phosphatase 334 U/L (46-116); Anion Gap 4.7 mmol/L (3-11); BUN 15 mg/dL (7-18); Bilirubin, Total 0.43 mg/dL (0.2-1.0); CO2 27.3 mmol/L (21.0-32.0); CREATININE 0.9 mg/dL (0.55-1.02); Calcium 8.9 mg/dL (8.5-10.1); Chloride 107 mmol/L (98-107); Estimated GFR 73.64 (mL/min/1.73m2); Glucose 217 mg/dL (74-106); Potassium 4.4 mmol/L (3.5-5.1); Sodium 139 mmol/L (136-145); Total Protein 7.5 g/dL (6.4-8.2)
== END 2024-04-28 16:20 | disposition home or self-care (01) ==
LOC: LBO 16:32
PROVIDERS: PCP Family Medicine; Visit Provider Family Medicine
DX: I10 Essential (primary) hypertension (principal)
CPT/HCPCS: 36415; 80053

== ENCOUNTER 2024-05-08 04:24 | Outpatient (CLI) | payer MEDICAID, SELFPAY ==
[2024-05-08 12:16] LABS: ALT 279 U/L (14-59); AST 169 U/L (15-37); Alkaline Phosphatase 234 U/L (46-116); Anion Gap 6.8 mmol/L (3-11); BUN 17 mg/dL (7-18); Bilirubin, Total 0.6 mg/dL (0.2-1.0); CO2 29.2 mmol/L (21.0-32.0); CREATININE 1.1 mg/dL (0.55-1.02); Calcium 9.1 mg/dL (8.5-10.1); Chloride 104 mmol/L (98-107); Estimated GFR 57.88 (mL/min/1.73m2); Glucose 331 mg/dL (74-106); Potassium 4.1 mmol/L (3.5-5.1); Sodium 140 mmol/L (136-145); Total Protein 7.4 g/dL (6.4-8.2)
== END 2024-05-08 04:25 | disposition home or self-care (01) ==
LOC: LBO 04:24
PROVIDERS: PCP Family Medicine; Visit Provider Family Medicine
DX: I10 Essential (primary) hypertension (principal); R79.89 Other specified abnormal findings of blood chemistry
CPT/HCPCS: 36415; 80053

== ENCOUNTER 2024-05-25 02:43 | Outpatient (CLI) | payer MEDICAID, SELFPAY ==
[2024-05-25 12:59] LABS: ALT 398 U/L (14-59); AST 340 U/L (15-37); Alkaline Phosphatase 222 U/L (46-116); Anion Gap 7.3 mmol/L (3-11); BUN 25 mg/dL (7-18); Bilirubin, Total 0.8 mg/dL (0.2-1.0); CO2 25.7 mmol/L (21.0-32.0); CREATININE 0.9 mg/dL (0.55-1.02); Chloride 106 mmol/L (98-107); Estimated GFR 73.64 (mL/min/1.73m2); Glucose 240 mg/dL (74-106); Potassium 4.5 mmol/L (3.5-5.1); Sodium 139 mmol/L (136-145); Total Protein 7.3 g/dL (6.4-8.2)
== END 2024-05-25 02:44 | disposition home or self-care (01) ==
PROVIDERS: PCP Family Medicine; Visit Provider Family Medicine
DX: I10 Essential (primary) hypertension (principal)
CPT/HCPCS: 36415; 80053

== ENCOUNTER 2024-06-08 02:19 | Outpatient (CLI) | payer MEDICAID, SELFPAY ==
[2024-06-08 12:13] LABS: ALT 252 U/L (14-59); AST 176 U/L (15-37); Albumin 3.1 g/dL (3.4-5.0); Alkaline Phosphatase 180 U/L (46-116); Anion Gap 8.6 mmol/L (3-11); BUN 16 mg/dL (7-18); Bilirubin, Total 0.6 mg/dL (0.2-1.0); CO2 27.4 mmol/L (21.0-32.0); CREATININE 0.9 mg/dL (0.55-1.02); Calcium 9.2 mg/dL (8.5-10.1); Chloride 107 mmol/L (98-107); Estimated GFR 73.64 (mL/min/1.73m2); Glucose 121 mg/dL (74-106); Potassium 4.2 mmol/L (3.5-5.1); Sodium 143 mmol/L (136-145); Total Protein 7.5 g/dL (6.4-8.2)
== END 2024-06-08 02:20 | disposition home or self-care (01) ==
LOC: LBO 02:20
PROVIDERS: PCP Family Medicine; Visit Provider Family Medicine
DX: I10 Essential (primary) hypertension (principal)
CPT/HCPCS: 36415; 80053

== ENCOUNTER 2024-08-05 14:58 | Emergency (ER) | payer MEDICAID, SELFPAY ==
[2024-08-05 14:59] VITALS: BP 127/83; PULSE 100; RESP 16; TEMP 36.9; O2SAT 98
[2024-08-05 15:07] VITALS: BP 127/83; PULSE 100; RESP 16; TEMP 36.9; O2SAT 98
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
[2024-08-05 15:32] VITALS: BP 142/76; PULSE 98; RESP 18; O2SAT 99
== END 2024-08-05 15:34 | disposition home or self-care (01) ==
PROVIDERS: Emergency Provider Emergency Medicine; PCP Family Medicine
DX: H66.92 Otitis media, unspecified, left ear (principal); E10.9 Type 1 diabetes mellitus without complications; E78.5 Hyperlipidemia, unspecified; Z79.4 Long term (current) use of insulin; Z87.891 Personal history of nicotine dependence
CPT/HCPCS: 99283

== ENCOUNTER 2024-08-17 01:03 | Outpatient (CLI) | payer MEDICAID, SELFPAY ==
[2024-08-17 19:11] LABS: TSH (W/Ref FT4) 2.65 uIU/mL (0.36-3.74)
== END 2024-08-17 01:04 | disposition home or self-care (01) ==
LOC: LBO 01:03
PROVIDERS: PCP Family Medicine; Visit Provider Family Medicine
DX: E03.9 Hypothyroidism, unspecified (principal)
CPT/HCPCS: 36415; 84443

== ENCOUNTER 2024-09-25 02:24 | Outpatient (CLI) | payer MEDICAID, SELFPAY ==
--- NOTE | 2024-09-25 13:20 | DI.MAMMO_ITS ---
Exam(s) MAMMO SCREENING EXAM: MAMMO SCREENING CLINICAL HISTORY: screening, Z12.39. TECHNIQUE: Bilateral full field digital CC and MLO mammographic images were obtained with 3D tomosynthesis and utilizing computer aided detection (CAD). COMPARISON: Prior mammograms were reviewed. FINDINGS: There has been no significant change in the appearance and distribution of the fibroglandular tissue. No new right breast findings. In the left breast a small group of microcalcifications located 6-7 cm in from the nipple on the MLO view is again noted. Same group is located 5 cm in from the nipple on the CC view. Size of this microcalcification group of slightly increased when compared to prior mammogram of May 2023. Spot Mag views recommended There are no new spiculated masses in either breast. There is no significant architectural distortion nor skin thickening-retraction. IMPRESSION: 1. No radiographic evidence of malignancy in right breast. 2. Small group of microcalcifications in the left breast as described above. Requires further imaging with 2D spot Mag views. BI-RADS Category 0 - Incomplete: Need additional imaging evaluation Breast Density - Category B - There are scattered areas of fibroglandular density. Breast density Category C or D implies that the patient has dense breast tissue. Dense breast tissue can make it harder to find cancer on a mammogram. Dense breast tissue is also associated with an increased risk of breast cancer. This information about the result of the mammogram report was provided to the patient to raise their awareness. Use this report when you speak with the patient about their risks for breast cancer, which includes their family history. At that time, you may recommend additional screening tests (Ultrasound or MRI) as these tests may add significant information. A negative radiographic report should not delay biopsy if a dominant or clinically suspicious mass is present. Up to ten percent of cancers are not identified on mammography. A negative report may reinforce clinical impression. Adenosis and dense breasts may obscure an underlying neoplasm. False positive reports average 6 to 10%. Patient will receive a letter notifying them of these results.
== END 2024-09-25 02:44 ==
LOC: DI 02:24
PROVIDERS: PCP Family Medicine; Visit Provider Family Medicine
DX: Z12.31 Encounter for screening mammogram for malignant neoplasm of breast (principal); R92.323 Mammographic fibroglandular density, bilateral breasts
CPT/HCPCS: 77063; 77067

== ENCOUNTER 2024-10-02 01:16 | Outpatient (CLI) | payer MEDICAID, SELFPAY ==
--- NOTE | 2024-10-02 | DI.MAMMO_ITS ---
Exam(s) MAMMO SCREEN CALL BACK UNI EXAM: MAMMO SCREEN CALL BACK UNI CLINICAL HISTORY: L BREAST MICROCALCIFICATIONS 6-7CM IN FROM NIPPLE, SLIGHTLY INCRE FROM PREV. TECHNIQUE: Craniocaudal and mediolateral oblique spot magnification digital Mammography views of the left breast with Computer Aided Diagnosis. COMPARISON: Comparison is made with prior examinations. FINDINGS: Mammography/Tomosynthesis: Masses/Architectural Distortion: There are no suspicious masses or areas of architectural distortion present. Microcalcifictions: No suspicious pleomorphic-type are seen. There is a tiny collection of calcifications again seen on the magnification views in the central left breast. Skin Thickening/Nipple Retraction: None. IMPRESSION: 1. Nonspecific collection of calcifications in the central left breast. 2. A six-month follow-up left mammogram is requested for re-evaluation. 3. The findings were discussed with the patient on the date of the examination. BI-RADS Category 3 - 6 month - Probably Benign Finding: Recommend follow-up imaging in 6 months Breast Density - Category B - There are scattered areas of fibroglandular density. Breast density Category C or D implies that the patient has dense breast tissue. Dense breast tissue can make it harder to find cancer on a mammogram. Dense breast tissue is also associated with an increased risk of breast cancer. This information about the result of the mammogram report was provided to the patient to raise their awareness. Use this report when you speak with the patient about their risks for breast cancer, which includes their family history. At that time, you may recommend additional screening tests (Ultrasound or MRI) as these tests may add significant information. A negative radiographic report should not delay biopsy if a dominant or clinically suspicious mass is present. Up to ten percent of cancers are not identified on mammography. A negative report may reinforce clinical impression. Adenosis and dense breasts may obscure an underlying neoplasm. False positive reports average 6 to 10%. Patient will receive a letter notifying them of these results.
== END 2024-10-02 01:36 ==
LOC: DI 01:16
PROVIDERS: PCP Family Medicine; Visit Provider Family Medicine
DX: Z12.31 Encounter for screening mammogram for malignant neoplasm of breast (principal); R92.323 Mammographic fibroglandular density, bilateral breasts
CPT/HCPCS: 77063; 77067

== ENCOUNTER 2024-10-04 02:19 | Outpatient (CLI) | payer MEDICAID, SELFPAY ==
[2024-10-04 11:59] LABS: Cholesterol 221 mg/dL (<200); HDL Cholesterol 69 mg/dL (>or=50)
[2024-10-04 12:02] LABS: Hemoglobin A1C 7.5 % (<5.7)
[2024-10-04 12:04] LABS: COMMENT (LAB VIEW ONLY) 304.48 mg/dL
[2024-10-04 12:05] LABS: Microalb ug/mg Crea 69.1 ug/mg Cr
[2024-10-04 12:16] LABS: Estimated GFR 84.82 (mL/min/1.73m2); LDL CHOLESTEROL 119 mg/dL (<100); TSH 3.12 uIU/mL (0.36-3.74)
== END 2024-10-04 02:20 | disposition home or self-care (01) ==
LOC: LBO 02:19
PROVIDERS: PCP Family Medicine; Visit Provider Physician Assistant
DX: E10.65 Type 1 diabetes mellitus with hyperglycemia (principal)
CPT/HCPCS: 80061; 83721; 82043; 82465; 82565; 82570; 83036; 83718; 84443